=== PATIENT | female | born 1940 | race Asian ===

== ENCOUNTER 2020-06-03 17:54 | Emergency (ER) | payer MEDICARE, OTHER ==
[~2020-06-03] VITALS: Ht 152.4 cm; Wt 54.4 kg
--- NOTE | 2020-06-03 18:05 | NUR ---
CAME TO ER WITH C/O OF WORSENING RIGHT SIDED OCCIPITAL AREA HEADACHE X 1 MONTH. PT ABLE TO MOVE ALL EXTREMITIES. NO N/V. NO SOB. NO FEVER. V/S STABLE. AWAITING FOR MD PERKINS
--- NOTE | 2020-06-03 18:25 | NUR ---
SEEN AND EVALUATED BY
[2020-06-03 18:40] LABS: BASOPHILS % (AUTO) 0.6 % (0.0-2.0); EOSINOPHILS % (AUTO) 2.6 % (0.0-6.0); HEMATOCRIT 32 % (33-45); HEMOGLOBIN 10.2 g/dL (11.5-14.8); LYMPHOCYTES # (AUTO) 1.1 /CMM (0.8-4.8); LYMPHOCYTES % (AUTO) 19.3 % (20.0-44.0); MEAN CORPUSCULAR HGB CONC 32 g/dl (31.0-36.0); MEAN CORPUSCULAR VOLUME 96 fL (82-100); MONOCYTES # (AUTO) 0.6 /CMM (0.1-1.30); NEUTROPHILS # (AUTO) 3.9 /CMM (1.8-8.9); NEUTROPHILS % (AUTO) 67.5 % (43.0-81.0); PLATELET COUNT (AUTO) 293 /CMM (150-450); RED BLOOD CELL COUNT(AUTO) 3.27 MIL/uL (4.0-5.2); WHITE BLOOD COUNT (AUTO) 5.8 K/uL (4.3-11.0)
--- NOTE | 2020-06-03 18:44 | NUR ---
PT OUT FOR CT
--- NOTE | 2020-06-03 18:52 | NUR ---
pt back from CT
[2020-06-03 19:32] LABS: CALCIUM, SERUM 9.8 mg/dL (8.5-10.1); CARBON DIOXIDE 26 mmol/L (21-32); CHLORIDE 103 mmol/L (98-107); CREATININE 1.6 mg/dL (0.6-1.3); GLUCOSE 213 mg/dL (74-106); POTASSIUM 3.8 mmol/L (3.5-5.1); SODIUM SERUM 141 mmol/L (136-145); UREA NITROGEN, BLOOD 29 mg/dL (7-18)
--- NOTE | 2020-06-03 20:12 | NUR ---
Patient discharged to home in stable condition. Written and verbal after care instructions given. Patient verbalizes understanding of instruction.Pt ambulatory with a steady gait
[2020-06-03 20:13] VITALS: BP 123/90
== END 2020-06-03 20:13 | disposition home or self-care (01) ==
LOC: ER 17:54
DX: R51.9 Headache, unspecified (principal); N28.9 Disorder of kidney and ureter, unspecified; D64.9 Anemia, unspecified; I10 Essential (primary) hypertension; E11.9 Type 2 diabetes mellitus without complications; Z98.890 Other specified postprocedural states
CPT/HCPCS: 36415; 70450-TC; 80048-TC; 82962-TC; 85025-TC

== ENCOUNTER 2022-05-26 13:54 | Inpatient (IN) | payer MEDICARE, OTHER ==
[~2022-05-26] VITALS: Ht 152.4 cm; Wt 54.0 kg
--- NOTE | 2022-05-26 14:05 | NUR ---
pt bib family c/o lower abdominal pain for the past 2 days. denies nausea vomiting or diarrhea, paiin worst today. stable vitals. nad noted. awaiting md linda.
--- NOTE | 2022-05-26 14:12 | NUR ---
dr daniels at bedside for eval.
--- NOTE | 2022-05-26 14:25 | NUR ---
pt to radiology for abdominal ct scan via [facility].
[2022-05-26] MEDS ORDERED: IV NS 0.9% 1,000 ML BAG IV ONE (14:30)
--- NOTE | 2022-05-26 14:40 | NUR ---
iv line started blood drawn and sent to lab.
[2022-05-26 15:07] LABS: BILIRUBIN,URINE NEGATIVE (NEGATIVE); COLOR,URINE YELLOW (YELLOW); LEUKOCYTE ESTERASE ,URINE TRACE (NEGATIVE); NITRITE, URINE NEGATIVE (NEGATIVE); PROTEIN,URINE NEGATIVE (NEGATIVE); UGLUCOSE NEGATIVE (NEGATIVE); UROBILINOGEN,URINE 0.2 EU/dL (0.2)
[2022-05-26 15:18] LABS: BASOPHILS % (AUTO) 0.1 % (0.0-2.0); EOSINOPHILS % (AUTO) 0.7 % (0.0-6.0); HEMATOCRIT 32 % (33-45); HEMOGLOBIN 10.3 g/dL (11.5-14.8); LYMPHOCYTES # (AUTO) 1.5 K/uL (0.8-4.8); LYMPHOCYTES % (AUTO) 10.1 % (20.0-44.0); MEAN CORPUSCULAR HGB CONC 32 g/dl (31.0-36.0); MEAN CORPUSCULAR VOLUME 92 fL (82-100); MONOCYTES # (AUTO) 1.1 K/uL (0.1-1.30); MONOCYTES % (AUTO) 7.8 % (2.0-12.0); NEUTROPHILS # (AUTO) 11.9 K/uL (1.8-8.9); NEUTROPHILS % (AUTO) 81.3 % (43.0-81.0); PLATELET COUNT (AUTO) 300 K/uL (150-450); RED BLOOD CELL COUNT(AUTO) 3.51 MIL/uL (4.0-5.2); WHITE BLOOD COUNT (AUTO) 14.6 K/uL (4.3-11.0)
[2022-05-26 15:33] LABS: CALCIUM, SERUM 9.8 mg/dL (8.5-10.1); CARBON DIOXIDE 24 mmol/L (21-32); CHLORIDE 100 mmol/L (98-107); CREATININE 1.6 mg/dL (0.6-1.3); GLUCOSE 235 mg/dL (74-106); POTASSIUM 3.8 mmol/L (3.5-5.1); SODIUM SERUM 136 mmol/L (136-145); UREA NITROGEN, BLOOD 33 mg/dL (7-18)
[2022-05-26 15:38] LABS: ALANINE AMINOTRANSFERASE 9 U/L (12-78); ALBUMIN 3.9 g/dL (3.4-5.0); ALKALINE PHOSPHATASE 91 U/L (46-116); ASPARTATE AMINOTRANSFERASE 13 U/L (15-37); BILIRUBIN,DIRECT 0.3 mg/dL (0.0-0.2); BILIRUBIN,TOTAL 0.7 mg/dL (0.2-1.0); LIPASE 412 U/L (73-393); TOTAL PROTEIN, SERUM 8.5 g/dL (6.4-8.2)
[2022-05-26] MEDS ORDERED: GLIP5TAB13 PO (15:48)
[2022-05-26] MEDS ORDERED: ERGO50CA PO (15:48)
[2022-05-26] MEDS ORDERED: LOSA100T31 PO (15:48)
[2022-05-26] MEDS ORDERED: SITA1TAB2 PO (15:48)
[2022-05-26] MEDS ORDERED: GEMF600T90 PO (15:48)
[2022-05-26] MEDS ORDERED: GABA-532 PO (15:48)
[2022-05-26 15:56] LABS: BACTERIA,URINE None seen /HPF (None Seen); RBC,URINE 0-2 /HPF (0-2)
[2022-05-26] MEDS ORDERED: PIPERACILLIN /TAZOBACTAM 3.375 G in IV D5W 50 ML IV ONE (16:00)
[2022-05-26] MEDS ORDERED: ASCO100031 PO (16:29)
[2022-05-26] MEDS ORDERED: OMEG-167 PO (16:29)
[2022-05-26] MEDS ORDERED: ASPI-1169 PO (16:29)
--- NOTE | 2022-05-26 16:34 | NUR ---
epic paged awaiting hospitalist call back.
--- NOTE | 2022-05-26 16:59 | NUR ---
report given to edin arredondo. awaiting transfer to floor.
[2022-05-26 17:30] VITALS: BP_SYST 115; BP_SYST 119; BP_DIAS 66; BP_DIAS 68
--- NOTE | 2022-05-26 17:30 | NUR ---
MS TUB RIDER NOTES RECEIVED PATIENT FROM ER ENDORSED BY JEFERSON VAUGHN VIA STRETCHER. PATIENT IS AWAKE AND A/O X4. ON ROOM AIR TOLERATING WELL. NO SOB NOTED. NOT IN DISTRESS. WITH COMPLAINTS OF TOLERABLE PAIN AT THE LEFT LOWER QUADRANT OF THE ABDOMEN AT THE SCALE OF 4/10. COMFORT MEASURES PROVIDED. SKIN ASSESSMENT DONE, SKIN IS INTACT. WITH IV ACCESS AT THE RIGHT AC, SALINE LOCKED, PATENT AND INTACT. SAFETY MEASURES IN PLACED. CALL LIGHT WITHIN REACH. BED ON LOWEST LOCKED POSITION, SIDE RAILS UP X2. WILL CONTINUE TO MONITOR.
[2022-05-26] MEDS ORDERED: MAGNESIUM HYDROXIDE 30 ML UDC PO PRN (18:00)
[2022-05-26] MEDS ORDERED: MORPHINE SULFATE INJ 2 MG/ML DISP.SYRIN IV PRN (18:00)
[2022-05-26] MEDS ORDERED: Z GUARD REMEDY 4 OZ OINT TP PRN (18:00)
[2022-05-26] MEDS ORDERED: ONDANSETRON HCL/PF 4 MG/2 ML VIAL IVP PRN (18:00)
[2022-05-26] MEDS ORDERED: MAG HYDROX/AL HYDROX/SIMETH 30 ML UDC PO PRN (18:00)
[2022-05-26] MEDS ORDERED: ACETAMINOPHEN 325 MG TABLET PO PRN (18:00)
[2022-05-26] MEDS ORDERED: ZOLPIDEM TARTRATE 5 MG TABLET PO PRN (18:00)
[2022-05-26] MEDS ORDERED: HYDROCODONE/APAP 5/325MG TABLET PO PRN (18:00)
[2022-05-26] MEDS: IV D5/0.45 NACL 1,000 ML IV PRN (18:17)
--- NOTE | 2022-05-26 19:25 | NUR ---
MS RN CLOSING NOTES RECEIVED PATIENT IN BED, AWAKE. PT A/O X4, ABLE TO MAKE NEEDS KNOWN. ON ROOM AIR, TOLERATING RA WELL. NO SOB OR ACUTE DISTRESS NOTED. NO C/O PAIN AT THIS TIME. IV ACCESS TO RIGHT AC INTACT, AND PATENT, RUNNING D5 1/2NS AT 100ML/HR. SAFETY MEASURES IN PLACE: CALL LIGHT WITHIN REACH. BED IN LOWEST LOCKED POSITION, SIDE RAILS UP X2. WILL CONTINUE TO MONITOR PT.
--- NOTE | 2022-05-26 19:30 | NUR ---
MS RN CLOSING NOTES PATIENT ON BED AWAKE AND A/O X4. ON ROOM AIR TOLERATING WELL. NO SOB NOTED. NOT IN DISTRESS. WITH COMPLAINTS OF TOLERABLE PAIN AT THE LEFT LOWER QUADRANT OF THE ABDOMEN AT THE SCALE OF 4/10. COMFORT MEASURES PROVIDED. WITH IV ACCESS AT THE RIGHT AC WITH D5 1/2NS AT 100ML/HR INFUSING WELL. SAFETY MEASURES IN PLACED. CALL LIGHT WITHIN REACH. BED ON LOWEST LOCKED POSITION, SIDE RAILS UP X2. WILL ENDORSE TO NEXT SHIFT FOR CAITLIN.
[2022-05-26 20:00] VITALS: BP 135/63
[2022-05-26] MEDS: PIPERACILLIN /TAZOBACTAM 2.25 G in IV D5W 50 ML IV SCH (22:01)
[2022-05-27] MEDS: PIPERACILLIN /TAZOBACTAM 2.25 G in IV D5W 50 ML IV SCH ×4 (04:34→22:05)
--- NOTE | 2022-05-27 07:10 | NUR ---
MS RN CLOSING NOTE PATIENT SLEEPING IN BED, PT A/O X4, ABLE TO VERBALIZE NEEDS. ON ROOM AIR, TOLERATING WELL. NO SOB, NO DISTRESS NOTED. NO C/O PAIN AT THIS TIME. COMFORT MEASURES PROVIDED. WITH IV ACCESS TO RIGHT AC WITH D5 1/2NS AT 100ML/HR INFUSING WELL. SAFETY MEASURES IN PLACED. CALL LIGHT WITHIN REACH. BED IN LOWEST LOCKED POSITION, SIDE RAILS UP X2. WILL ENDORSE TO NEXT SHIFT NURSE FOR CAITLIN.
[2022-05-27 07:14] LABS: BASOPHILS % (AUTO) 0.3 % (0.0-2.0); EOSINOPHILS % (AUTO) 1.6 % (0.0-6.0); HEMATOCRIT 27 % (33-45); LYMPHOCYTES # (AUTO) 1.5 K/uL (0.8-4.8); LYMPHOCYTES % (AUTO) 14.2 % (20.0-44.0); MEAN CORPUSCULAR HGB CONC 33 g/dl (31.0-36.0); MEAN CORPUSCULAR VOLUME 93 fL (82-100); MONOCYTES # (AUTO) 0.9 K/uL (0.1-1.30); MONOCYTES % (AUTO) 8.3 % (2.0-12.0); NEUTROPHILS # (AUTO) 7.9 K/uL (1.8-8.9); NEUTROPHILS % (AUTO) 75.6 % (43.0-81.0); PLATELET COUNT (AUTO) 257 K/uL (150-450); RED BLOOD CELL COUNT(AUTO) 2.92 MIL/uL (4.0-5.2); WHITE BLOOD COUNT (AUTO) 10.4 K/uL (4.3-11.0)
--- NOTE | 2022-05-27 07:31 | NUR ---
MS RN OPENING NOTES RECEIVED PT IN BED ASLEEP, EASILY AWAKEN BY STIMULI. A/O 4 NO SOB OR CARDIAC DISTRESS NOTED. ON NPO. IV ACCESS NOTED ON RAC G20 PATENT AND INTACT INFUSING D5 1/2 NS 100ML/HR WELL. KEPT RESTED AND COMFORTABLE. MAINTAINED SAFETY PRECAUTIONS: BED IN LOWEST AND LOCKED POSITION, SIDE RAILS UP X 2 CALL LIGHT IN EASY REACH FOR HELP. KEPT RESTED AND COMFORTABLE.
[2022-05-27 07:47] LABS: CALCIUM, SERUM 8.9 mg/dL (8.5-10.1); CARBON DIOXIDE 21 mmol/L (21-32); CHLORIDE 106 mmol/L (98-107); CREATININE 1.4 mg/dL (0.6-1.3); GLUCOSE 253 mg/dL (74-106); LIPASE 340 U/L (73-393); MAGNESIUM 2.1 mg/dL (1.8-2.4); POTASSIUM 3.6 mmol/L (3.5-5.1); SODIUM SERUM 138 mmol/L (136-145); UREA NITROGEN, BLOOD 24 mg/dL (7-18)
[2022-05-27 08:00] VITALS: BP 121/60
[2022-05-27] MEDS: IV D5/0.45 NACL 1,000 ML IV PRN ×2 (08:41→22:14)
[2022-05-27] MEDS: PANTOPRAZOLE 40 MG VIAL IV SCH (08:41)
[2022-05-27 16:00] VITALS: BP 110/64
[2022-05-27 17:38] VITALS: BP 110/54
[2022-05-27 18:13] LABS: CREATININE, URINE 43.2 MG/DL (30.0-125.0)
--- NOTE | 2022-05-27 19:04 | NUR ---
RN NOTES: REINSERTED IV ACCESS ON L HAND GAUGE 22.
--- NOTE | 2022-05-27 19:04 | NUR ---
MS RN CLOSING NOTES RECEIVED PT IN BED AWAKE . A/O 4 NO SOB OR CARDIAC DISTRESS NOTED. MAINTAINED ON NPO. IV ACCESS NOTED ON L HAND G22 PATENT AND INTACT INFUSING D5 1/2 NS 100ML/HR WELL. KEPT RESTED AND COMFORTABLE. MAINTAINED SAFETY PRECAUTIONS: BED IN LOWEST AND LOCKED POSITION, SIDE RAILS UP X 2 CALL LIGHT IN EASY REACH FOR HELP. ENDORSED TO NOC SHIFT FOR CAITLIN.
--- NOTE | 2022-05-27 19:30 | NUR ---
MS RN OPENING NOTE RECEIVED PATIENT IN BED, AWAKE. PT A/O X4, ABLE TO MAKE NEEDS KNOWN. ON ROOM AIR, TOLERATING RA WELL. NO SOB OR ACUTE DISTRESS NOTED. NO C/O PAIN AT THIS TIME. IV ACCESS TO RIGHT AC INTACT, AND PATENT, RUNNING D5 1/2NS AT 100ML/HR. SAFETY MEASURES IN PLACE: CALL LIGHT WITHIN REACH. BED IN LOWEST LOCKED POSITION, SIDE RAILS UP X2. WILL CONTINUE TO MONITOR PT.
[2022-05-27 20:00] VITALS: BP 118/64
[2022-05-28] MEDS: PIPERACILLIN /TAZOBACTAM 2.25 G in IV D5W 50 ML IV SCH ×4 (04:37→21:04)
[2022-05-28 06:53] LABS: BASOPHILS % (AUTO) 0.9 % (0.0-2.0); EOSINOPHILS % (AUTO) 6.2 % (0.0-6.0); HEMATOCRIT 28 % (33-45); HEMOGLOBIN 9.4 g/dL (11.5-14.8); LYMPHOCYTES # (AUTO) 1.1 K/uL (0.8-4.8); LYMPHOCYTES % (AUTO) 20.4 % (20.0-44.0); MEAN CORPUSCULAR HGB CONC 33 g/dl (31.0-36.0); MEAN CORPUSCULAR VOLUME 93 fL (82-100); MONOCYTES # (AUTO) 0.5 K/uL (0.1-1.30); MONOCYTES % (AUTO) 9.7 % (2.0-12.0); NEUTROPHILS # (AUTO) 3.4 K/uL (1.8-8.9); NEUTROPHILS % (AUTO) 62.8 % (43.0-81.0); PLATELET COUNT (AUTO) 288 K/uL (150-450); RED BLOOD CELL COUNT(AUTO) 3.07 MIL/uL (4.0-5.2); WHITE BLOOD COUNT (AUTO) 5.4 K/uL (4.3-11.0)
--- NOTE | 2022-05-28 07:10 | NUR ---
MS RN CLOSING NOTE PATIENT SLEEPING IN BED, PT A/O X4, ABLE TO VERBALIZE NEEDS. ON ROOM AIR, TOLERATING WELL. NO SOB, NO DISTRESS NOTED. NO C/O PAIN AT THIS TIME. COMFORT MEASURES PROVIDED. WITH IV ACCESS TO LEFT HAND 22G WITH D5 1/2 NS AT 100ML/HR INFUSING WELL. SAFETY MEASURES IN PLACED. CALL LIGHT WITHIN REACH. BED IN LOWEST LOCKED POSITION, SIDE RAILS UP X2. WILL ENDORSE TO NEXT SHIFT NURSE FOR CAITLIN.
[2022-05-28 07:23] LABS: CALCIUM, SERUM 9.2 mg/dL (8.5-10.1); CREATININE 1.3 mg/dL (0.6-1.3); MAGNESIUM 2.2 mg/dL (1.8-2.4); PHOSPHORUS 2.5 mg/dL (2.5-4.9); POTASSIUM 3.7 mmol/L (3.5-5.1)
--- NOTE | 2022-05-28 07:35 | NUR ---
RN OPENING NOTES PATIENT IN BED, ALERT ORIENTED X 4 . NO ACUTE DISTRESS NOTED. BREATHING UNLABORED, NO SOB NOTED.DENIED ANY PAIN. IV ACCESS PATENT AND INTACT, NO REDNESS OR SWELLING NOTED. SAFETY MEASURES IN PLACE, CALL LIGHT WITHIN REACH. WILL CONTINUE TO MONITOR ACCORDINGLY
[2022-05-28 08:00] VITALS: BP 124/68
[2022-05-28] MEDS: PANTOPRAZOLE 40 MG VIAL IV SCH (08:37)
[2022-05-28] MEDS: IV D5/0.45 NACL 1,000 ML IV PRN ×2 (08:39→21:04)
[2022-05-28 16:00] VITALS: BP 138/72
--- NOTE | 2022-05-28 18:42 | NUR ---
RN CLOSING NOTES PATIENT IN BED, ALERT ORIENTED X 4 . NO ACUTE DISTRESS NOTED. BREATHING UNLABORED, NO SOB NOTED.DENIED ANY PAIN. IV ACCESS PATENT AND INTACT, NO REDNESS OR SWELLING NOTED. SAFETY MEASURES IN PLACE, CALL LIGHT WITHIN REACH. NEEDS ATTENDED AND ANTICIPATED. WILL ENDORSE TO NIGHT NURSE FOR CONTINUITY OF CARE
--- NOTE | 2022-05-28 19:30 | NUR ---
MS RN OPENING NOTE RECEIVED PT AWAKE IN BED. A/O X4 AND ABLE TO MAKE NEEDS KNOWN. PT STABLE ON ROOM AIR. NO SOB OR S/S OF RESPIRATORY DISTRESS. BREATHING EVEN AND UNLABORED. IV ACCESS L HAND 22G RUNNING D5 1/2 NS @ 100 ML/HR. SAFETY PRECAUTIONS IN PLACE. BED IN LOWEST LOCKED POSITION, HOB ELEVATED, SIDE RAILS UP X2, AND CALL LIGHT AND TABLE WITHIN REACH. ALL NEEDS MET AT THIS TIME.
[2022-05-28 20:00] VITALS: BP 121/64
[2022-05-29] MEDS: PIPERACILLIN /TAZOBACTAM 2.25 G in IV D5W 50 ML IV SCH ×3 (03:56→16:22)
[2022-05-29 06:30] LABS: BASOPHILS % (AUTO) 0.7 % (0.0-2.0); EOSINOPHILS % (AUTO) 6.5 % (0.0-6.0); HEMATOCRIT 28 % (33-45); HEMOGLOBIN 9.2 g/dL (11.5-14.8); MEAN CORPUSCULAR HGB CONC 33 g/dl (31.0-36.0); MEAN CORPUSCULAR VOLUME 92 fL (82-100); MONOCYTES # (AUTO) 0.5 K/uL (0.1-1.30); NEUTROPHILS # (AUTO) 3.4 K/uL (1.8-8.9); NEUTROPHILS % (AUTO) 64.8 % (43.0-81.0); PLATELET COUNT (AUTO) 320 K/uL (150-450); RED BLOOD CELL COUNT(AUTO) 3.02 MIL/uL (4.0-5.2); WHITE BLOOD COUNT (AUTO) 5.3 K/uL (4.3-11.0)
--- NOTE | 2022-05-29 07:00 | NUR ---
MS RN CLOSING NOTE PT AWAKE IN BED. A/O X4 AND ABLE TO MAKE NEEDS KNOWN. PT STABLE ON ROOM AIR. NO SOB OR S/S OF RESPIRATORY DISTRESS. BREATHING EVEN AND UNLABORED. IV ACCESS L HAND 22G RUNNING D5 1/2 NS @ 100 ML/HR. ALL DUE MEDS GIVEN ORDERED. SAFETY PRECAUTIONS IN PLACE AT ALL TIMES. BED IN LOWEST LOCKED POSITION, HOB ELEVATED, SIDE RAILS UP X2, AND CALL LIGHT AND TABLE WITHIN REACH. ALL NEEDS MET AT THIS TIME AND WILL ENDORSE TO ONCOMING NURSE TO [facility].
[2022-05-29 07:04] LABS: CARBON DIOXIDE 24 mmol/L (21-32); CHLORIDE 107 mmol/L (98-107); CREATININE 1.4 mg/dL (0.6-1.3); GLUCOSE 269 mg/dL (74-106); PHOSPHORUS 2.6 mg/dL (2.5-4.9); POTASSIUM 3.3 mmol/L (3.5-5.1); SODIUM SERUM 141 mmol/L (136-145); UREA NITROGEN, BLOOD 12 mg/dL (7-18)
--- NOTE | 2022-05-29 08:05 | NUR ---
MS RN OPENING NOTE Patient in bed, asleep. A/O x 4. On room air, breathing evenly and unlabored. No SOB or s/s of distress noted. IV access on Left hand #22 infusing D5 1/2 NS at 100 ml/hr. Safety precautions in place: bed in low, locked position; siderails up x 2, call light within reach. Will continue to monitor.
[2022-05-29] MEDS: PANTOPRAZOLE 40 MG VIAL IV SCH (09:01)
[2022-05-29] MEDS: IV D5/0.45 NACL 1,000 ML IV PRN (09:02)
[2022-05-29 09:58] VITALS: BP 133/76
[2022-05-29] MEDS: POTASSIUM CL. PREMIX PERIPHER. 50 ML IV SCH ×2 (11:02→12:03)
[2022-05-29] MEDS ORDERED: CIPR500S3 PO (16:54)
[2022-05-29] MEDS ORDERED: METR500T PO (16:54)
--- NOTE | 2022-05-29 18:45 | NUR ---
DISCHARGE NOTE Received order for discharge. Patient is A/O x 4, able to make needs known. Stable on room air, breathing evenly and unlabored. No SOB or s/s of distress noted. Discharge instruction given to patient both verbally and in written form, verbalized understanding. Patient denies any pain or discomfort at this time. IV access removed, catheter tip intact. Pressure dressing applied. ID band removed. Patient left in stable condition with daughter via private car.
== END 2022-05-29 18:50 | disposition home or self-care (01) | DRG 391 ==
LOC: ER 13:59 → MED 16:33
PROVIDERS: ADMIT Student in an Organized Health Care Education/Training Program; ATTEND Student in an Organized Health Care Education/Training Program
DX: K57.32 Diverticulitis of large intestine without perforation or abscess without bleeding (principal); N17.0 Acute kidney failure with tubular necrosis; E86.0 Dehydration; I10 Essential (primary) hypertension; Z20.822 Contact with and (suspected) exposure to COVID-19; E11.9 Type 2 diabetes mellitus without complications; E78.5 Hyperlipidemia, unspecified; Z79.82 Long term (current) use of aspirin; Z79.84 Long term (current) use of oral hypoglycemic drugs; Z79.899 Other long term (current) drug therapy; D63.8 Anemia in other chronic diseases classified elsewhere; E87.6 Hypokalemia
CPT/HCPCS: 36415; 80048-TC; 80076-TC; 81001; 82570-TC; 83605-TC; 83690-TC; 83735-TC; 84100-TC; 84300-TC; 85025-TC; 87040-TC; 87045-TC; 87081-TC; C9113; G0378; J2543; J3480; J3490; J7050; J7060

== ENCOUNTER 2023-07-07 07:45 | Inpatient (IN) | payer MEDICARE, OTHER ==
[~2023-07-07] VITALS: Ht 152.4 cm; Wt 67.1 kg
[~2023-07-07 07:45] MED LIST: ASCO100031 PO; ASPI-1169 PO; CIPR500S3 PO; ERGO50CA PO; GABA-532 PO; GEMF600T90 PO; GLIP5TAB13 PO; LOSA100T31 PO; METR500T PO; OMEG-167 PO; SITA1TAB2 PO
[2023-07-07] MEDS ORDERED: IV NS 0.9% 500 ML BAG IV ONE (08:00)
[2023-07-07 08:21] LABS: BASOPHILS % (AUTO) 0.2 % (0.0-2.0); EOSINOPHILS # (AUTO) 0.1 K/uL (0.0-0.7); EOSINOPHILS % (AUTO) 1.3 % (0.0-6.0); HEMATOCRIT 29 % (33-45); HEMOGLOBIN 9.1 g/dL (11.5-14.8); LYMPHOCYTES # (AUTO) 0.5 K/uL (0.8-4.8); LYMPHOCYTES % (AUTO) 7.5 % (20.0-44.0); MEAN CORPUSCULAR HEMOGLOBIN 31 PG (26.0-33.0); MEAN CORPUSCULAR HGB CONC 32 g/dl (31.0-36.0); MEAN CORPUSCULAR VOLUME 99 fL (82-100); MONOCYTES # (AUTO) 0.5 K/uL (0.1-1.30); NEUTROPHILS # (AUTO) 5.4 K/uL (1.8-8.9); PLATELET COUNT (AUTO) 302 K/uL (150-450); RED BLOOD CELL COUNT(AUTO) 2.91 MIL/uL (4.0-5.2); RED CELL DISTRIBUTION WIDTH 16.1 % (11.5-15.0); WHITE BLOOD COUNT (AUTO) 6.5 K/uL (4.3-11.0)
[2023-07-07 08:48] LABS: ALANINE AMINOTRANSFERASE 9 U/L (12-78); ALBUMIN 3.8 g/dL (3.4-5.0); ALKALINE PHOSPHATASE 178 U/L (46-116); ASPARTATE AMINOTRANSFERASE 15 U/L (15-37); BILIRUBIN,DIRECT 0.1 mg/dL (0.0-0.2); BILIRUBIN,TOTAL 0.7 mg/dL (0.2-1.0); CALCIUM, SERUM 9.2 mg/dL (8.5-10.1); CARBON DIOXIDE 20 mmol/L (21-32); CHLORIDE 102 mmol/L (98-107); GLUCOSE 146 mg/dL (74-106); SODIUM SERUM 132 mmol/L (136-145); UREA NITROGEN, BLOOD 39 mg/dL (7-18)
[2023-07-07 08:49] LABS: CREATININE 2.2 mg/dL (0.6-1.3)
[2023-07-07] MEDS ORDERED: MAGNESIUM HYDROXIDE 30 ML UDC PO PRN (11:30)
[2023-07-07] MEDS ORDERED: ACETAMINOPHEN 325 MG TABLET PO PRN (11:30)
[2023-07-07] MEDS ORDERED: Z GUARD REMEDY 4 OZ OINT TP PRN (11:30)
[2023-07-07] MEDS ORDERED: ZOLPIDEM TARTRATE 5 MG TABLET PO PRN (11:30)
[2023-07-07] MEDS ORDERED: DEXTROSE 50%-WATER 50 ML DISP.SYRIN IV PRN (11:30)
[2023-07-07] MEDS ORDERED: MAG HYDROX/AL HYDROX/SIMETH 30 ML UDC PO PRN (11:30)
[2023-07-07] MEDS ORDERED: ONDANSETRON HCL/PF 4 MG/2 ML VIAL IVP PRN (11:30)
[2023-07-07 12:00] VITALS: BP 100/58; TEMP 97.8; O2SAT 100
[2023-07-07] MEDS: BLOOD SUGAR DIAGNOSTIC 1 EACH STRIP IN SCH ×3 (12:08→22:27)
[2023-07-07 16:00] VITALS: BP 105/55; TEMP 97.8; O2SAT 97
[2023-07-07] MEDS ORDERED: Medication Not On Formulary EA (Omega-3 Fatty Acids/Fish Oil (Fish Oil 1,000 Mg Softgel) PO SCH (17:00)
[2023-07-07] MEDS: GEMFIBROZIL 600 MG TABLET PO SCH (17:20)
[2023-07-07] MEDS: INSULIN REGULAR, HUMAN 100 UNIT/ML 3 ML VIAL SQ PRN ×2 (17:21→22:28)
[2023-07-07 20:00] VITALS: BP 107/52; TEMP 99; O2SAT 99
[2023-07-07] MEDS: IV NS 0.9% 1,000 ML IV PRN (20:27)
[2023-07-08] VITALS: BP 112/50; TEMP 98.8; O2SAT 98
[2023-07-08 06:00] VITALS: BP 113/63; TEMP 98.4; O2SAT 98
[2023-07-08 06:35] LABS: BASOPHILS % (AUTO) 0.6 % (0.0-2.0); EOSINOPHILS # (AUTO) 0.2 K/uL (0.0-0.7); EOSINOPHILS % (AUTO) 4.5 % (0.0-6.0); HEMATOCRIT 25 % (33-45); HEMOGLOBIN 8.2 g/dL (11.5-14.8); LYMPHOCYTES # (AUTO) 0.9 K/uL (0.8-4.8); LYMPHOCYTES % (AUTO) 18.2 % (20.0-44.0); MEAN CORPUSCULAR HEMOGLOBIN 33 PG (26.0-33.0); MEAN CORPUSCULAR HGB CONC 33 g/dl (31.0-36.0); MEAN CORPUSCULAR VOLUME 98 fL (82-100); MONOCYTES # (AUTO) 0.4 K/uL (0.1-1.30); MONOCYTES % (AUTO) 9.3 % (2.0-12.0); NEUTROPHILS # (AUTO) 3.2 K/uL (1.8-8.9); NEUTROPHILS % (AUTO) 67.4 % (43.0-81.0); PLATELET COUNT (AUTO) 278 K/uL (150-450); RED BLOOD CELL COUNT(AUTO) 2.52 MIL/uL (4.0-5.2); RED CELL DISTRIBUTION WIDTH 15.5 % (11.5-15.0); WHITE BLOOD COUNT (AUTO) 4.8 K/uL (4.3-11.0)
[2023-07-08 06:50] LABS: CALCIUM, SERUM 8.8 mg/dL (8.5-10.1); CARBON DIOXIDE 20 mmol/L (21-32); CHLORIDE 109 mmol/L (98-107); CREATININE 1.8 mg/dL (0.6-1.3); GLUCOSE 143 mg/dL (74-106); MAGNESIUM 2.6 mg/dL (1.8-2.4); PHOSPHORUS 3.8 mg/dL (2.5-4.9); POTASSIUM 5.4 mmol/L (3.5-5.1); SODIUM SERUM 138 mmol/L (136-145); UREA NITROGEN, BLOOD 35 mg/dL (7-18)
[2023-07-08] MEDS: IV NS 0.9% 1,000 ML IV PRN ×2 (07:20→16:39)
[2023-07-08] MEDS: BLOOD SUGAR DIAGNOSTIC 1 EACH STRIP IN SCH ×4 (07:52→22:04)
[2023-07-08] MEDS: INSULIN REGULAR, HUMAN 100 UNIT/ML 3 ML VIAL SQ PRN ×4 (07:53→22:03)
[2023-07-08 08:00] VITALS: BP 123/60; TEMP 98.1; O2SAT 98
[2023-07-08 08:16] LABS: THYROID STIMULATING HORMONE 2.743 uIU/mL (0.358-3.74)
[2023-07-08] MEDS: ASPIRIN 81 MG TAB.CHEW PO SCH (08:19)
[2023-07-08] MEDS: CHOLECALCIFEROL 1,000 UNIT TABLET (VIT D3) PO SCH (08:20)
[2023-07-08] MEDS: ASCORBIC ACID 500 MG TABLET PO SCH (08:20)
[2023-07-08] MEDS: GABAPENTIN 100 MG CAPSULE PO SCH (08:20)
[2023-07-08] MEDS: GEMFIBROZIL 600 MG TABLET PO SCH ×2 (08:20→16:38)
[2023-07-08 12:00] VITALS: BP 120/66; TEMP 98.4; O2SAT 99
[2023-07-08] MEDS ORDERED: SODIUM POLYSTYRENE SULFONATE 15 G/60 ML BOTTLE PO ONE (14:30)
[2023-07-08 15:59] LABS: CREATININE, URINE 14.4 MG/DL (30.0-125.0); URINE TOTAL PROTEIN 47.8 mg/dL (0-11.9)
[2023-07-08 16:00] VITALS: BP 118/60; TEMP 98.8; O2SAT 96
[2023-07-08 16:02] LABS: APPEARANCE,URINE CLEAR (CLEAR); BILIRUBIN,URINE NEGATIVE (NEGATIVE); BLOOD, URINE 3+ Ery/uL (NEGATIVE); COLOR,URINE AMBER (YELLOW); KETONES,URINE NEGATIVE (NEGATIVE); LEUKOCYTE ESTERASE ,URINE 2+ (NEGATIVE); NITRITE, URINE POSITIVE (NEGATIVE); PH,URINE 6.5 (5.0-8.0); PROTEIN,URINE 1+ mg/dl (NEGATIVE); UGLUCOSE NEGATIVE (NEGATIVE); UROBILINOGEN,URINE 0.2 EU/dL (0.2)
[2023-07-08 16:45] LABS: ADD URINE CULTURE YES; BACTERIA,URINE 4+ /HPF (None Seen); RBC,URINE 51-80 /HPF (0-2)
[2023-07-08 16:46] LABS: SQUAMOUS EPITHELIAL CELL,UR Few /HPF (None Seen)
[2023-07-08 17:38] LABS: EOSINOPHIL,URINE None Seen
[2023-07-08 20:00] VITALS: BP 116/64; TEMP 98.3; O2SAT 98
[2023-07-09] VITALS: BP 117/66; TEMP 97.6; O2SAT 99
[2023-07-09 04:00] VITALS: BP 123/72; TEMP 98.1; O2SAT 96
[2023-07-09] MEDS: IV NS 0.9% 1,000 ML IV PRN ×2 (04:18→15:59)
[2023-07-09] MEDS: BLOOD SUGAR DIAGNOSTIC 1 EACH STRIP IN SCH ×4 (07:29→22:12)
[2023-07-09 07:46] LABS: BASOPHILS % (AUTO) 0.7 % (0.0-2.0); EOSINOPHILS # (AUTO) 0.2 K/uL (0.0-0.7); EOSINOPHILS % (AUTO) 3.8 % (0.0-6.0); HEMATOCRIT 25 % (33-45); HEMOGLOBIN 7.8 g/dL (11.5-14.8); LYMPHOCYTES # (AUTO) 0.9 K/uL (0.8-4.8); LYMPHOCYTES % (AUTO) 20.2 % (20.0-44.0); MEAN CORPUSCULAR HEMOGLOBIN 31 PG (26.0-33.0); MEAN CORPUSCULAR HGB CONC 32 g/dl (31.0-36.0); MEAN CORPUSCULAR VOLUME 98 fL (82-100); MONOCYTES # (AUTO) 0.4 K/uL (0.1-1.30); MONOCYTES % (AUTO) 8.1 % (2.0-12.0); NEUTROPHILS # (AUTO) 3.2 K/uL (1.8-8.9); NEUTROPHILS % (AUTO) 67.2 % (43.0-81.0); PLATELET COUNT (AUTO) 301 K/uL (150-450); RED BLOOD CELL COUNT(AUTO) 2.51 MIL/uL (4.0-5.2); RED CELL DISTRIBUTION WIDTH 15.7 % (11.5-15.0); WHITE BLOOD COUNT (AUTO) 4.7 K/uL (4.3-11.0)
[2023-07-09 08:00] VITALS: BP 123/65; TEMP 98.2; O2SAT 98
[2023-07-09 08:13] LABS: IRON, SERUM 84 ug/dl (50-175); TOTAL IRON BINDING CAPACITY 385 ug/dl (250-450)
[2023-07-09 08:28] LABS: CREATINE KINASE, TOTAL 62 U/L (26-192); FERRITIN 338 ng/mL (8-388)
[2023-07-09 08:30] LABS: ALANINE AMINOTRANSFERASE 9 U/L (12-78); ALBUMIN 3.2 g/dL (3.4-5.0); ALKALINE PHOSPHATASE 146 U/L (46-116); ASPARTATE AMINOTRANSFERASE 16 U/L (15-37); BILIRUBIN,TOTAL 0.3 mg/dL (0.2-1.0); CALCIUM, SERUM 8.9 mg/dL (8.5-10.1); CARBON DIOXIDE 21 mmol/L (21-32); CHLORIDE 110 mmol/L (98-107); CREATININE 1.6 mg/dL (0.6-1.3); GLUCOSE 165 mg/dL (74-106); MAGNESIUM 2.3 mg/dL (1.8-2.4); PHOSPHORUS 4.2 mg/dL (2.5-4.9); POTASSIUM 4.5 mmol/L (3.5-5.1); SODIUM SERUM 140 mmol/L (136-145); TOTAL PROTEIN, SERUM 7.2 g/dL (6.4-8.2); UREA NITROGEN, BLOOD 31 mg/dL (7-18)
[2023-07-09] MEDS: ASCORBIC ACID 500 MG TABLET PO SCH (09:02)
[2023-07-09] MEDS: GEMFIBROZIL 600 MG TABLET PO SCH ×2 (09:02→16:55)
[2023-07-09] MEDS: ASPIRIN 81 MG TAB.CHEW PO SCH (09:02)
[2023-07-09] MEDS: GABAPENTIN 100 MG CAPSULE PO SCH (09:02)
[2023-07-09] MEDS: CHOLECALCIFEROL 1,000 UNIT TABLET (VIT D3) PO SCH (09:02)
[2023-07-09] MEDS: INSULIN REGULAR, HUMAN 100 UNIT/ML 3 ML VIAL SQ PRN ×3 (11:46→22:12)
[2023-07-09 12:00] VITALS: BP 118/67; TEMP 98.4; O2SAT 98
[2023-07-09 16:00] VITALS: BP 131/67; TEMP 99.1; O2SAT 96
[2023-07-09 20:00] VITALS: BP 134/60; TEMP 98.2; O2SAT 97
[2023-07-10] VITALS: BP 119/71; TEMP 97.9; O2SAT 97
[2023-07-10] MEDS: IV NS 0.9% 1,000 ML IV PRN (01:12)
[2023-07-10 04:00] VITALS: BP 129/62; TEMP 97.7; O2SAT 98
[2023-07-10 05:48] LABS: BASOPHILS % (AUTO) 0.7 % (0.0-2.0); EOSINOPHILS # (AUTO) 0.2 K/uL (0.0-0.7); EOSINOPHILS % (AUTO) 4.5 % (0.0-6.0); HEMATOCRIT 25 % (33-45); HEMOGLOBIN 7.9 g/dL (11.5-14.8); MEAN CORPUSCULAR HEMOGLOBIN 32 PG (26.0-33.0); MEAN CORPUSCULAR HGB CONC 32 g/dl (31.0-36.0); MEAN CORPUSCULAR VOLUME 100 fL (82-100); MONOCYTES # (AUTO) 0.6 K/uL (0.1-1.30); MONOCYTES % (AUTO) 10.8 % (2.0-12.0); NEUTROPHILS # (AUTO) 3.5 K/uL (1.8-8.9); PLATELET COUNT (AUTO) 285 K/uL (150-450); RED BLOOD CELL COUNT(AUTO) 2.46 MIL/uL (4.0-5.2); RED CELL DISTRIBUTION WIDTH 15.9 % (11.5-15.0); WHITE BLOOD COUNT (AUTO) 5.4 K/uL (4.3-11.0)
[2023-07-10 06:16] LABS: CARBON DIOXIDE 19 mmol/L (21-32); CHLORIDE 112 mmol/L (98-107); CREATININE 1.4 mg/dL (0.6-1.3); GLUCOSE 98 mg/dL (74-106); MAGNESIUM 2.2 mg/dL (1.8-2.4); PHOSPHORUS 4.1 mg/dL (2.5-4.9); POTASSIUM 4.6 mmol/L (3.5-5.1); SODIUM SERUM 142 mmol/L (136-145); UREA NITROGEN, BLOOD 30 mg/dL (7-18)
[2023-07-10] MEDS: BLOOD SUGAR DIAGNOSTIC 1 EACH STRIP IN SCH ×3 (07:36→16:45)
[2023-07-10] MEDS: INSULIN REGULAR, HUMAN 100 UNIT/ML 3 ML VIAL SQ PRN ×3 (07:37→16:47)
[2023-07-10 08:00] VITALS: BP 143/68; TEMP 97.8; O2SAT 98
[2023-07-10] MEDS: ASCORBIC ACID 500 MG TABLET PO SCH (08:12)
[2023-07-10] MEDS: CHOLECALCIFEROL 1,000 UNIT TABLET (VIT D3) PO SCH (08:12)
[2023-07-10] MEDS: GEMFIBROZIL 600 MG TABLET PO SCH ×2 (08:12→16:22)
[2023-07-10] MEDS: ASPIRIN 81 MG TAB.CHEW PO SCH (08:12)
[2023-07-10] MEDS: GABAPENTIN 100 MG CAPSULE PO SCH (08:12)
[2023-07-10 12:00] VITALS: BP 135/63; TEMP 98.6; O2SAT 97
[2023-07-10 16:00] VITALS: BP 131/79; TEMP 98.8; O2SAT 98
[2023-07-10 16:10] LABS: PTH, INTACT 25 pg/mL (15-65)
[2023-07-11 10:11] LABS: *SPE A/G RATIO 0.9 (0.7-1.7); *SPE ALBUMIN 2.9 g/dL (2.9-4.4); *SPE ALPHA-1-GLOBULIN 0.3 g/dL (0.0-0.4); *SPE BETA GLOBULIN 1.1 g/dL (0.7-1.3); *SPE GLOBULIN, TOTAL 3.4 g/dL (2.2-3.9); *SPE M-SPIKE Not Observed g/dL (Not Observed); *SPE PROTEIN TOTAL 6.3 g/dL (6.0-8.5); *SPEGAMMA GLOBULIN 0.9 g/dL (0.4-1.8)
== END 2023-07-10 18:55 | disposition home or self-care (01) | DRG 638 ==
LOC: ER 07:47 → TRANSITION 09:41 → TELE1 09:58
PROVIDERS: ADMIT Student in an Organized Health Care Education/Training Program; ATTEND Student in an Organized Health Care Education/Training Program
DX: E11.649 Type 2 diabetes mellitus with hypoglycemia without coma (principal); E87.1 Hypo-osmolality and hyponatremia; N17.0 Acute kidney failure with tubular necrosis; D64.9 Anemia, unspecified; E11.22 Type 2 diabetes mellitus with diabetic chronic kidney disease; E78.5 Hyperlipidemia, unspecified; E87.5 Hyperkalemia; N18.9 Chronic kidney disease, unspecified; Z79.84 Long term (current) use of oral hypoglycemic drugs; R53.1 Weakness; I12.9 Hypertensive chronic kidney disease with stage 1 through stage 4 chronic kidney disease, or unspecified chronic kidney disease; R55 Syncope and collapse; D50.0 Iron deficiency anemia secondary to blood loss (chronic); Z79.82 Long term (current) use of aspirin
CPT/HCPCS: 36415; 70450-TC; 71045-TC; 76770-TC; 80048-TC; 80053-TC; 80076-TC; 81001; 82550-TC; 82570-TC; 82607-TC; 82728-TC; 82962-TC; 83540-TC; 83735-TC; 83970; 84100-TC; 84155; 84165; 84300-TC; 84443-TC; 84484-TC; 85025-TC; 87086-TC; 97112-TC; 97116-TC; 97530-TC; A4223; G0378; J1815; J7030; J7040

== ENCOUNTER 2023-08-12 14:29 | Inpatient (IN) | payer MEDICARE, OTHER ==
[~2023-08-12] VITALS: Ht 157.5 cm; Wt 68.9 kg
[~2023-08-12 14:29] MED LIST changes: -CIPR500S3 PO; -GLIP5TAB13 PO; -METR500T PO; -SITA1TAB2 PO
[2023-08-12] MEDS ORDERED: IV NS 0.9% 1,000 ML BAG IV ONE (15:00)
[2023-08-12] MEDS ORDERED: GLIP5TAB13 PO (15:15)
[2023-08-12] MEDS ORDERED: FERR325T23 PO (15:15)
[2023-08-12] MEDS ORDERED: FOLI0.4T6 PO (15:15)
[2023-08-12] MEDS ORDERED: AMLO-213 PO (15:15)
[2023-08-12] MEDS ORDERED: PIOG30TA10 PO (15:15)
[2023-08-12] MEDS ORDERED: MEMA10TA56 PO (15:15)
[2023-08-12] MEDS ORDERED: NEBI5TAB8 PO (15:15)
[2023-08-12 15:40] LABS: HEMATOCRIT 30 % (33-45); HEMOGLOBIN 9.5 g/dL (11.5-14.8); LYMPHOCYTES # (AUTO) 0.3 K/uL (0.8-4.8); LYMPHOCYTES % (AUTO) 2.7 % (20.0-44.0); MEAN CORPUSCULAR HEMOGLOBIN 32 PG (26.0-33.0); MEAN CORPUSCULAR HGB CONC 32 g/dl (31.0-36.0); MEAN CORPUSCULAR VOLUME 100 fL (82-100); MONOCYTES # (AUTO) 0.2 K/uL (0.1-1.30); MONOCYTES % (AUTO) 1.5 % (2.0-12.0); NEUTROPHILS # (AUTO) 10.8 K/uL (1.8-8.9); NEUTROPHILS % (AUTO) 95.8 % (43.0-81.0); PLATELET COUNT (AUTO) 303 K/uL (150-450); RED BLOOD CELL COUNT(AUTO) 3.02 MIL/uL (4.0-5.2); RED CELL DISTRIBUTION WIDTH 14.5 % (11.5-15.0); WHITE BLOOD COUNT (AUTO) 11.2 K/uL (4.3-11.0)
[2023-08-12 15:49] LABS: APPEARANCE,URINE CLEAR (CLEAR); BILIRUBIN,URINE NEGATIVE (NEGATIVE); BLOOD, URINE 2+ Ery/uL (NEGATIVE); COLOR,URINE YELLOW (YELLOW); KETONES,URINE NEGATIVE (NEGATIVE); LEUKOCYTE ESTERASE ,URINE NEGATIVE (NEGATIVE); NITRITE, URINE POSITIVE (NEGATIVE); PH,URINE 5.5 (5.0-8.0); PROTEIN,URINE TRACE mg/dl (NEGATIVE); UGLUCOSE 3+ mg/dL (NEGATIVE); UROBILINOGEN,URINE 0.2 EU/dL (0.2)
[2023-08-12] MEDS ORDERED: IV LR 1000 ML 1,000 ML BAG IV ONE ×3 (16:00→18:00)
[2023-08-12 16:03] LABS: AMPHETAMINE, URINE NEGATIVE (NEGATIVE); BARBITURATE, URINE NEGATIVE (NEGATIVE); BENZODIAZEPINE, URINE NEGATIVE (NEGATIVE); CANNABINOID, URINE NEGATIVE (NEGATIVE); COCCAINE, URINE NEGATIVE (NEGATIVE); OPIATE, URINE NEGATIVE (NEGATIVE); PHENCYCLIDINE SCREEN,URINE NEGATIVE (NEGATIVE)
[2023-08-12 16:04] LABS: CARBON DIOXIDE 14 mmol/L (21-32); CHLORIDE 91 mmol/L (98-107); CREATININE 3.4 mg/dL (0.6-1.3); POTASSIUM 4.7 mmol/L (3.5-5.1); SODIUM SERUM 124 mmol/L (136-145); UREA NITROGEN, BLOOD 53 mg/dL (7-18)
[2023-08-12 16:06] LABS: GLUCOSE 685 mg/dL (74-106)
[2023-08-12 16:09] LABS: ALANINE AMINOTRANSFERASE < 6 U/L (12-78); ALBUMIN 3.1 g/dL (3.4-5.0); ALCOHOL, BLOOD < 3 mg/dL (0-10); ALKALINE PHOSPHATASE 274 U/L (46-116); ASPARTATE AMINOTRANSFERASE 9 U/L (15-37); BILIRUBIN,DIRECT 0.1 mg/dL (0.0-0.2); BILIRUBIN,TOTAL 0.4 mg/dL (0.2-1.0); TOTAL PROTEIN, SERUM 7.6 g/dL (6.4-8.2)
[2023-08-12 16:12] LABS: ACETAMINOPHEN 0 ug/ml (10-30); SALICYLATE 2.2 mg/dL (2.8-20.0)
[2023-08-12 16:22] LABS: LACTIC ACID 6.1 mmol/L (0.4-2.0)
[2023-08-12 16:39] LABS: RBC,URINE 21-50 /HPF (0-2)
[2023-08-12 16:40] LABS: ADD URINE CULTURE YES; BACTERIA,URINE 3+ /HPF (None Seen); SQUAMOUS EPITHELIAL CELL,UR 0-2 /HPF (None Seen)
[2023-08-12] MEDS ORDERED: IV PREMIX NS +20MEQ KCL 1 L IV SCH (17:00)
[2023-08-12] MEDS ORDERED: CEFTRIAXONE 1GM BAG (ER ONLY) 1 GM/50 ML PIGGYBACK IV ONE (17:00)
[2023-08-12] MEDS ORDERED: INSULIN REGULAR, HUMAN 100 UNITS in IV NS 0.9% 100 ML IV PRN ×2 (17:00)
[2023-08-12 17:02] LABS: THYROID STIMULATING HORMONE 1.084 uIU/mL (0.358-3.74)
[2023-08-12 17:10] LABS: CALCIUM, SERUM 8.6 mg/dL (8.5-10.1); CARBON DIOXIDE 15 mmol/L (21-32); CHLORIDE 96 mmol/L (98-107); CREATININE 3.2 mg/dL (0.6-1.3); SODIUM SERUM 127 mmol/L (136-145); UREA NITROGEN, BLOOD 54 mg/dL (7-18)
[2023-08-12 17:11] LABS: GLUCOSE 623 mg/dL (74-106)
[2023-08-12 17:13] LABS: MAGNESIUM 1.9 mg/dL (1.8-2.4); PHOSPHORUS 3.3 mg/dL (2.5-4.9)
[2023-08-12] MEDS ORDERED: CEFTRIAXONE 1GM BAG (ER ONLY) 50 ML IV ONE (17:23)
[2023-08-12] MEDS ORDERED: ONDANSETRON HCL/PF 4 MG/2 ML VIAL IVP PRN (17:30)
[2023-08-12] MEDS ORDERED: MAG HYDROX/AL HYDROX/SIMETH 30 ML UDC PO PRN (17:30)
[2023-08-12] MEDS ORDERED: PANTOPRAZOLE 40 MG VIAL IV SCH (17:30)
[2023-08-12] MEDS ORDERED: GABAPENTIN 100 MG CAPSULE PO PRN (17:30)
[2023-08-12] MEDS ORDERED: ACETAMINOPHEN 325 MG TABLET PO PRN (17:30)
[2023-08-12] MEDS ORDERED: Z GUARD REMEDY 4 OZ OINT TP PRN (17:30)
[2023-08-12] MEDS ORDERED: HYDROCODONE/APAP 5/325MG TABLET PO PRN (17:30)
[2023-08-12] MEDS ORDERED: MAGNESIUM HYDROXIDE 30 ML UDC PO PRN (17:30)
[2023-08-12] MEDS ORDERED: TEMAZEPAM 15 MG CAPSULE PO PRN (17:30)
[2023-08-12] MEDS ORDERED: IV NS 0.9% 1,000 ML IV PRN (17:30)
[2023-08-12] MEDS ORDERED: MORPHINE SULFATE INJ 2 MG/ML DISP.SYRIN IV PRN (17:30)
[2023-08-12] MEDS ORDERED: INSULIN REGULAR, HUMAN 100 UNIT in IV NS 0.9% 99 ML IV PRN ×2 (17:30)
[2023-08-12] MEDS ORDERED: NOREPINEPHRINE 8 MG in IV NS 0.9% 250 ML IV ONE (18:30)
[2023-08-12 19:33] LABS: CALCIUM, SERUM 8.4 mg/dL (8.5-10.1); CARBON DIOXIDE 13 mmol/L (21-32); CHLORIDE 98 mmol/L (98-107); CREATININE 3.2 mg/dL (0.6-1.3); PHOSPHORUS 3.2 mg/dL (2.5-4.9); POTASSIUM 4.2 mmol/L (3.5-5.1); SODIUM SERUM 127 mmol/L (136-145); UREA NITROGEN, BLOOD 53 mg/dL (7-18)
[2023-08-12 19:37] LABS: GLUCOSE 556 mg/dL (74-106)
[2023-08-12 19:45] LABS: ANISOCYTOSIS 1+; BAND % (MANUAL) 12 % (0.0-5.0); LYMPHOCYTES % (MANUAL) 10 % (16-48); METAMYELOCYTES % 5 % (0-0); MONOCYTES % (MANUAL) 6 % (0-11.0); NEUTROPHILS % (MANUAL) 67 (42-76)
[2023-08-12 19:46] LABS: PLATELET ESTIMATE ADEQU
[2023-08-12 20:52] LABS: CALCIUM, SERUM 8.4 mg/dL (8.5-10.1); CARBON DIOXIDE 13 mmol/L (21-32); CHLORIDE 99 mmol/L (98-107); CREATININE 3.4 mg/dL (0.6-1.3); POTASSIUM 4.8 mmol/L (3.5-5.1); SODIUM SERUM 130 mmol/L (136-145); UREA NITROGEN, BLOOD 52 mg/dL (7-18)
[2023-08-12 20:57] LABS: GLUCOSE 468 mg/dL (74-106)
[2023-08-12 20:59] LABS: MAGNESIUM 1.7 mg/dL (1.8-2.4); PHOSPHORUS 3.9 mg/dL (2.5-4.9)
[2023-08-12] MEDS ORDERED: METOPROLOL TARTRATE 25 MG TABLET PO SCH (21:00)
[2023-08-12] MEDS ORDERED: HEPARIN SODIUM, PORCINE 5000 UNITS/1 ML VIAL ONE (21:03)
[2023-08-12] MEDS: LORAZEPAM INJ 2 MG/ML VIAL IV PRN ×2 (21:28→21:48)
[2023-08-12] MEDS ORDERED: LORAZEPAM INJ 2 MG/ML VIAL ONE (21:29)
[2023-08-12] MEDS ORDERED: PANTOPRAZOLE 40 MG VIAL ONE (21:41)
[2023-08-12] MEDS: HEPARIN SODIUM, PORCINE 5000 UNITS/1 ML VIAL SQ SCH (21:48)
[2023-08-12 22:35] LABS: CALCIUM, SERUM 8.3 mg/dL (8.5-10.1); CARBON DIOXIDE 13 mmol/L (21-32); CHLORIDE 100 mmol/L (98-107); CREATININE 3.5 mg/dL (0.6-1.3); POTASSIUM 4.7 mmol/L (3.5-5.1); SODIUM SERUM 132 mmol/L (136-145); UREA NITROGEN, BLOOD 53 mg/dL (7-18)
[2023-08-12 22:37] LABS: GLUCOSE 445 mg/dL (74-106)
[2023-08-12] MEDS ORDERED: NOREPINEPHRINE 8MG/250ML RTU 250 ML IV ONE (23:29)
[2023-08-13] VITALS (33 sets, daily range): BP systolic 54–114; BP diastolic 19–77; TEMP 97.2; O2SAT 92–100
[2023-08-13] MEDS ORDERED: NOREPINEPHRINE 4 MG/4 ML AMPUL IV ONE ×2 (01:20→03:37)
[2023-08-13 02:24] LABS: CALCIUM, SERUM 8.3 mg/dL (8.5-10.1); CARBON DIOXIDE 16 mmol/L (21-32); CHLORIDE 101 mmol/L (98-107); CREATININE 3.7 mg/dL (0.6-1.3); GLUCOSE 286 mg/dL (74-106); POTASSIUM 4.8 mmol/L (3.5-5.1); SODIUM SERUM 132 mmol/L (136-145); UREA NITROGEN, BLOOD 56 mg/dL (7-18)
[2023-08-13 07:24] LABS: BASOPHILS # (AUTO) 0.1 K/uL (0.0-0.2); BASOPHILS % (AUTO) 0.2 % (0.0-2.0); EOSINOPHILS % (AUTO) 0.1 % (0.0-6.0); HEMATOCRIT 28 % (33-45); HEMOGLOBIN 8.7 g/dL (11.5-14.8); LYMPHOCYTES # (AUTO) 0.5 K/uL (0.8-4.8); LYMPHOCYTES % (AUTO) 1.4 % (20.0-44.0); MEAN CORPUSCULAR HEMOGLOBIN 31 PG (26.0-33.0); MEAN CORPUSCULAR HGB CONC 32 g/dl (31.0-36.0); MEAN CORPUSCULAR VOLUME 98 fL (82-100); MONOCYTES # (AUTO) 1.3 K/uL (0.1-1.30); MONOCYTES % (AUTO) 3.3 % (2.0-12.0); NEUTROPHILS # (AUTO) 36.2 K/uL (1.8-8.9); PLATELET COUNT (AUTO) 233 K/uL (150-450); RED CELL DISTRIBUTION WIDTH 14.4 % (11.5-15.0)
[2023-08-13] MEDS ORDERED: NOREPINEPHRINE 8 MG in IV NS 0.9% 250 ML IV PRN (07:30)
[2023-08-13 08:01] LABS: CALCIUM, SERUM 8.4 mg/dL (8.5-10.1); CHLORIDE 104 mmol/L (98-107); CREATININE 3.4 mg/dL (0.6-1.3); GLUCOSE 146 mg/dL (74-106); PHOSPHORUS 4.1 mg/dL (2.5-4.9); POTASSIUM 5.6 mmol/L (3.5-5.1); SODIUM SERUM 132 mmol/L (136-145); UREA NITROGEN, BLOOD 57 mg/dL (7-18)
[2023-08-13 08:04] LABS: WHITE BLOOD COUNT (AUTO) 38.1 K/uL (4.3-11.0)
[2023-08-13 08:10] LABS: CARBON DIOXIDE 10 mmol/L (21-32)
[2023-08-13 08:21] LABS: ABG BASE EXCESS -11.2 mmol/L; ABG OXYGEN SATURATION 96.8 % (92.0-98.5); ABG PCO2 26.1 mmHg (35.0-45.0); ABG PH 7.329 (7.350-7.450); ABG PO2 98.8 mmHg (75.0-100.0); ABG TOTAL HEMOGLOBIN 9.1 G/dL (12.0-16.0); COHb 0.3 % (0.5-1.5); MetHb 0.1 % (0.0-1.5); O2Hb 96.4 % (94.0-97.0); SITE, ABG Left Brachial; VENT MODE, BG 3 L NC O2
[2023-08-13] MEDS ORDERED: CHOLECALCIFEROL 1,000 UNIT TABLET (VIT D3) PO SCH (09:00)
[2023-08-13] MEDS ORDERED: ASPIRIN 81 MG TAB.CHEW PO SCH (09:00)
[2023-08-13] MEDS ORDERED: MEMANTINE HCL 5 MG TABLET PO SCH (09:00)
[2023-08-13] MEDS ORDERED: AMLODIPINE BESYLATE 10 MG TABLET PO SCH (09:00)
[2023-08-13] MEDS: HEPARIN SODIUM, PORCINE 5000 UNITS/1 ML VIAL SQ SCH (09:00)
[2023-08-13] MEDS: FERROUS SULFATE (325 MG) 325 MG/TAB TABLET PO SCH ×2 (09:00→17:00)
[2023-08-13] MEDS: GEMFIBROZIL 600 MG TABLET PO SCH ×2 (09:00→17:00)
[2023-08-13] MEDS ORDERED: FOLIC ACID 1 MG TABLET PO SCH (09:00)
[2023-08-13] MEDS ORDERED: SODIUM POLYSTYRENE SULFONATE 15 G/60 ML BOTTLE PO ONE (09:30)
[2023-08-13 09:32] LABS: CALCIUM, SERUM 8.2 mg/dL (8.5-10.1); CARBON DIOXIDE 13 mmol/L (21-32); CHLORIDE 104 mmol/L (98-107); CREATININE 3.8 mg/dL (0.6-1.3); GLUCOSE 188 mg/dL (74-106); SODIUM SERUM 134 mmol/L (136-145); UREA NITROGEN, BLOOD 60 mg/dL (7-18)
[2023-08-13] MEDS ORDERED: CEFEPIME 1 GM in IV D5W 50 ML IV SCH (09:32)
[2023-08-13 09:33] LABS: CHOLESTEROL 110 mg/dL (<200); HDL CHOLESTEROL 32 mg/dL (40-60); LDL 43 mg/dL (0-99); THYROID STIMULATING HORMONE 0.849 uIU/mL (0.358-3.74); TRIGLYCERIDES 190 mg/dL (30-150)
[2023-08-13 09:38] LABS: POTASSIUM 6.2 mmol/L (3.5-5.1)
[2023-08-13] MEDS ORDERED: IV NS 0.9% 1,000 ML IV PRN ×2 (09:49→16:30)
[2023-08-13] MEDS ORDERED: IPRATROPIUM NEB FS 0.5 MG/2.5 ML AMPUL.NEB ONE (09:51)
[2023-08-13] MEDS ORDERED: IPRATROPIUM NEB FS 0.5 MG/2.5 ML AMPUL.NEB NEB ONE (10:00)
[2023-08-13] MEDS ORDERED: ALBUTEROL FS 2.5 MG/0.5 ML VIAL.NEB NEB ONE (10:00)
[2023-08-13] MEDS ORDERED: ALBUTEROL FS 2.5 MG/3 ML VIAL.NEB ONE (10:00)
[2023-08-13] MEDS ORDERED: SODIUM POLYSTYRENE SULFONATE 15 G/60 ML BOTTLE ONE (10:06)
[2023-08-13] MEDS ORDERED: PANTOPRAZOLE 40 MG VIAL ONE (10:06)
[2023-08-13] MEDS ORDERED: FERROUS SULFATE (325 MG) 325 MG/TAB TABLET ONE (10:07)
[2023-08-13] MEDS ORDERED: CHOLECALCIFEROL 1,000 UNIT TABLET (VIT D3) ONE (10:08)
[2023-08-13] MEDS ORDERED: ASPIRIN EC 81 MG TABLET.DR PO ONE ×2 (10:08→10:55)
[2023-08-13] MEDS ORDERED: FOLIC ACID 1 MG TABLET ONE (10:08)
[2023-08-13] MEDS ORDERED: MEMANTINE HCL 5 MG TABLET ONE (10:09)
[2023-08-13 11:31] LABS: BAND % (MANUAL) 10 % (0.0-5.0); LYMPHOCYTES % (MANUAL) 6 % (16-48); NEUTROPHILS % (MANUAL) 75 (42-76)
[2023-08-13 11:32] LABS: ANISOCYTOSIS 1+; BASOPHILS % (MANUAL) 0 % (0.0-2.0); EOSINOPHILS % (MANUAL) 0 % (0-4); MONOCYTES % (MANUAL) 9 % (0-11.0); PLATELET ESTIMATE ADEQUATE
[2023-08-13] MEDS ORDERED: INSULIN REGULAR, HUMAN 100 UNIT in IV NS 0.9% 99 ML IV PRN ×2 (12:30)
[2023-08-13] MEDS ORDERED: PHENYLEPHRINE 50 MG in IV NS 0.9% 245 ML IV PRN (14:00)
[2023-08-13 14:54] LABS: CARBON DIOXIDE 12 mmol/L (21-32); CHLORIDE 102 mmol/L (98-107); CREATININE 3.8 mg/dL (0.6-1.3); GLUCOSE 252 mg/dL (74-106); POTASSIUM 5.3 mmol/L (3.5-5.1); SODIUM SERUM 133 mmol/L (136-145); UREA NITROGEN, BLOOD 61 mg/dL (7-18)
[2023-08-13] MEDS ORDERED: AMIODARONE 150 MG in IV D5W 100 ML IV ONE (15:00)
[2023-08-13] MEDS ORDERED: AMIODARONE 450 MG in IV D5W 241 ML IV PRN ×4 (15:00)
[2023-08-13] MEDS ORDERED: IV D5/0.45 NACL 1,000 ML IV PRN (15:00)
[2023-08-13] MEDS: NOREPINEPHRINE 8 MG in IV NS 0.9% 242 ML IV PRN ×2 (15:29→18:07)
[2023-08-13] MEDS ORDERED: IV NS 0.9% 250 ML IV PRN (16:00)
[2023-08-13 16:45] LABS: CARBON DIOXIDE 12 mmol/L (21-32); CHLORIDE 102 mmol/L (98-107); CREATININE 3.7 mg/dL (0.6-1.3); GLUCOSE 248 mg/dL (74-106); POTASSIUM 4.8 mmol/L (3.5-5.1); SODIUM SERUM 132 mmol/L (136-145); UREA NITROGEN, BLOOD 59 mg/dL (7-18)
[2023-08-13] MEDS ORDERED: CEFTRIAXONE 1 G in IV D5W 50 ML IV SCH (18:00)
[2023-08-13] MEDS ORDERED: VASOPRESSIN INJ 40 UNIT in IV NS 0.9% 38 ML IV PRN (18:30)
[2023-08-13] MEDS ORDERED: MEROPENEM 500 MG in IV NS 0.9% 50 ML IV SCH ×2 (19:00→19:30)
[2023-08-14] MEDS ORDERED: PANTOPRAZOLE 40 MG TABLET.DR PO SCH (07:30)
== END 2023-08-13 23:20 | DRG 871 ==
LOC: ER 14:34 → TRANSITION 17:42 → ICU 08-13 11:35
PROVIDERS: ADMIT Nurse Practitioner Acute Care; ATTEND Nurse Practitioner Acute Care
DX: A41.9 Sepsis, unspecified organism (principal); E11.10 Type 2 diabetes mellitus with ketoacidosis without coma; G92.8 Other toxic encephalopathy; I50.33 Acute on chronic diastolic (congestive) heart failure; J96.01 Acute respiratory failure with hypoxia; N17.0 Acute kidney failure with tubular necrosis; R65.21 Severe sepsis with septic shock; J18.9 Pneumonia, unspecified organism; E87.1 Hypo-osmolality and hyponatremia; N10 Acute pyelonephritis; N13.6 Pyonephrosis; I13.0 Hypertensive heart and chronic kidney disease with heart failure and stage 1 through stage 4 chronic kidney disease, or unspecified chronic kidney disease; Z66 Do not resuscitate; E78.5 Hyperlipidemia, unspecified; E86.1 Hypovolemia; E11.22 Type 2 diabetes mellitus with diabetic chronic kidney disease; E87.5 Hyperkalemia; I45.10 Unspecified right bundle-branch block; I48.91 Unspecified atrial fibrillation; N18.9 Chronic kidney disease, unspecified; Z79.82 Long term (current) use of aspirin; Z79.84 Long term (current) use of oral hypoglycemic drugs; K59.00 Constipation, unspecified; H70.90 Unspecified mastoiditis, unspecified ear; G30.9 Alzheimer's disease, unspecified; F02.80 Dementia in other diseases classified elsewhere, unspecified severity, without behavioral disturbance, psychotic disturbance, mood disturbance, and anxiety; B96.20 Unspecified Escherichia coli [E. coli] as the cause of diseases classified elsewhere; N20.0 Calculus of kidney; R31.9 Hematuria, unspecified
CPT/HCPCS: 36415; 36600; 70450-TC; 71045-TC; 80048-TC; 80061-TC; 80076-TC; 81001; 82803-TC; 82962-TC; 83605-TC; 83735-TC; 84100-TC; 84443-TC; 85025-TC; 87040-TC; 87086-TC; 93307-TC; A4223; C9113; G0378; G0480; J0282; J0692; J0696; J1644; J1815; J2060; J2185; J3490; J7030; J7050; J7060; J7120